=== PATIENT | male | born 1980 | race Asian ===

== ENCOUNTER 2016-10-22 22:58 | Emergency (ER) | payer OTHER, MEDICAID ==
[2016-10-22] MEDS ORDERED: TDAP ADULT 0.5 ML INJ (BOOSTRIX) IM ONE (23:00)
[2016-10-22 23:03] VITALS: RESP 18; TEMP 99
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
[2016-10-23 01:04] VITALS: BP 170/110; PULSE 100; O2SAT 93
== END 2016-10-23 01:03 | disposition home or self-care (01) ==
LOC: EDUNIT#
PROC: 0HQ0XZZ Repair Scalp Skin, External Approach (ICD-10-PCS; principal; 2016-10-22)
DX: S01.01XA Laceration without foreign body of scalp, initial encounter (principal); S69.92XA Unspecified injury of left wrist, hand and finger(s), initial encounter; S69.91XA Unspecified injury of right wrist, hand and finger(s), initial encounter; F17.200 Nicotine dependence, unspecified, uncomplicated; Z23 Encounter for immunization; X99.8XXA Assault by other sharp object, initial encounter; Y92.89 Other specified places as the place of occurrence of the external cause; Y99.0 Civilian activity done for income or pay; Y93.89 Activity, other specified
CPT/HCPCS: L3807

== ENCOUNTER 2017-03-19 09:45 | Emergency (ER) | payer OTHER, MEDICAID ==
[2017-03-19 09:50] VITALS: BP 167/116; PULSE 108; RESP 20; TEMP 98.2; O2SAT 95
[2017-03-19] MEDS ORDERED: OXYMETAZOLINE 30 ML NASAL SPRAY EACHNARE ONE (10:13)
--- NOTE | 2017-03-19 10:18 | EDPHY ---
H & P Stated Complaint: nose bleed, starting last night Time Seen by Provider: 03/19/17 10:14 HPI/ROS: HPI: This is a 37-year-old male who presents with Chief Complaint: Nosebleed started last night Location: nose Quality: Bleeding Duration: Last night Signs and Symptoms: No fever, + nasal congestion, no sinus pressure, no bruising, no headache, no runny nose Timing: Intermittent episodes Severity: Mild Context: Patient has a history alcohol and cocaine use presents with sudden onset of mild nosebleed of his right near last night while at work. He reports that he has noticed some nasal dryness and congestion over the last several weeks. Has central air. Does admit to digital manipulation prior to bleeding episodes starting yesterday evening. He reports that he applied direct pressure while or complete ice pack on the back of his head and the nosebleed stopped. It reoccurred 2 more times since yesterday evening. Patient denies any blood thinner use/injury. 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 CONSTITUTIONAL: adult male, nontoxic in appearance, awake and alert, no obvious distress HEENT: Atraumatic and normocephalic, PERRL, EOMI. Nares patent; no epistaxis anterior noted; dry nasal mucosa with mild edema; no septal hematoma. Tympanic membranes clear. Oropharynx clear, no exudate and moist pink mucosa. Airway patent. No lymphadenopathy. No meningismus. Cardiovascular: Normal S1/S2, regular rate, regular rhythm, without murmur rub or gallop. PULMONARY/CHEST: Symmetrical and nontender. Clear to auscultation bilaterally. Good air movement. No accessory muscle usage. ABDOMEN: Soft, nondistended, nontender, no rebound, no guarding, no peritoneal signs, no masses or organomegaly. No CVAT. EXTREMITIES: 2/2 pulses, strength 5/5, no deformities, no clubbing, no cyanosis or edema. NEUROLOGICAL: no focal neuro deficits. GCS 15. SKIN: Warm and dry, no erythema. no rash. Good capillary refill. Source: Patient Exam Limitations: No limitations - Personal History Current Tetanus/Diphtheria Vaccine: Unsure Current Tetanus Diphtheria and Acellular Pertussis (TDAP): Unsure Tetanus Vaccine Date: <10YRS - Medical/Surgical History Hx Asthma: No Hx Chronic Respiratory Disease: No Hx Diabetes: No Hx Cardiac Disease: No Hx Renal Disease: No Hx Cirrhosis: No Hx Alcoholism: Yes Hx HIV/AIDS: No Hx Splenectomy or Spleen Trauma: No Other PMH: pmh- etoh, cocaine abuse, R "bum" knee. psh- fasciotomy RLE - Social History Smoking Status: Current every day smoker Constitutional: Initial Vital Signs Temperature (C) 36.8 C 03/19/17 09:48 Heart Rate 108 H 03/19/17 09:48 Respiratory Rate 20 03/19/17 09:48 Blood Pressure 167/116 H 03/19/17 09:48 O2 Sat (%) 95 03/19/17 09:48 O2 Delivery Mode Room Air Allergies/Adverse Reactions: amoxicillin Allergy (Intermediate, Verified 03/19/17 09:47) Hives Penicillins Allergy (Verified 03/19/17 09:47) weed pollen Allergy (Verified 03/19/17 09:47) cotton Allergy (Uncoded 01/12/16 08:26) Home Medications: Medication Instructions Recorded Oxymetazoline HCl [Nasal [place] 2 spray NS Q4 PRN #30 ml 03/19/17 Sinus] Medical Decision Making ED Course/Re-evaluation: Upon arrival patient does not currently have nosebleed. Examination of the nose shows no active bleeding in the anterior portion. Afrin placed. Monitored for over 1 hr without recurrence of bleeding. Advised to stop digital manipulation/cocaine use, moisturize nasal passages, humidifier. Patient does not take any blood thinners in often blood work but patient politely declined as he is concerned about cost. Denies easy bruising/ petechiae. This patient was seen under the supervision of my secondary supervising physician. I evaluated care for this patient independently. Discussed this patient with Dr. Ontiveros who did not see the patient. Differential Diagnosis: Differential diagnosis includes but is not limited to sinus infection, upper respiratory infection, digital manipulation, nasal polyp, nasal malignancy, coagulopathy. - Data Points Medications Given: Discontinued Medications Oxymetazoline HCl (Afrin Nasal Inkom) 2 sprays EACHNARE EDNOW ONE Stop: 03/19/17 10:14 Last Admin: 03/19/17 10:18 Dose: 2 sprays Departure - Departure Disposition: Home, Routine, Self-Care Clinical Impression: Mild epistaxis Condition: Good Instructions: Nosebleed (ED) Additional Instructions: Please avoid any digital manipulation, cocaine use, nose blowing x 1 week. Apply Vaseline or nasal saline spray to nares as needed for nasal dryness. Use a humidifier in your home to prevent dryness. Establish care with primary care provider at [facility]. If symptoms continue to reoccur over the next several days please follow-up with ENT for further evaluation. Referrals: [facility],. [Clinic] - As per Instructions Caitlin Foy MD [Medical Doctor] - As per Instructions Prescriptions: Oxymetazoline HCl [Nasal [place]kom Sinus] 2 spray NS Q4 PRN #30 ml PRN Reason: Dry Nose
== END 2017-03-19 10:37 | disposition home or self-care (01) ==
DX: R04.0 Epistaxis (principal); F17.200 Nicotine dependence, unspecified, uncomplicated